=== PATIENT | male | born 1990 | race Two or more races ===

== ENCOUNTER 2017-09-02 21:35 | Emergency (ER) | payer OTHER ==
[~2017-09-02] VITALS: Ht 152.4 cm; Wt 70.3 kg
--- NOTE | 2017-09-02 22:20 | NUR ---
Pt c/o lower midline and LLQ ABD pain, intermittant, up to 9/10. Pt denies CP, SOB, dizziness, n/v, no other complaints, no distress noted.
[2017-09-02 22:37] LABS: *BILIRUBIN,URIN NEGATIVE (NEGATIVE); *BLOOD, URINE NEGATIVE (NEGATIVE); *CLARITY,URINE CLEAR (CLEAR); *COLOR,URINE YELLOW (YELLOW); *KETONES,URINE NEGATIVE (NEGATIVE); *PROTEIN,URINE NEGATIVE (NEGATIVE); *UROBILINOGEN,URINE 0.2 E.U./dl (NORMAL); LEUKOCYTE ESTERASE ,URINE NEGATIVE (NEGATIVE); NITRITE, URINE NEGATIVE (NEGATIVE); UGLUCOSE NEGATIVE (NEGATIVE)
[2017-09-02 22:59] LABS: BACTERIA,URINE NONE SEEN /HPF (NONE SEEN); RBC,URINE NONE SEEN /HPF (0-3); SQUAMOUS EPITHELIAL CELL,UR FEW /HPF (NONE SEEN); WBC,URINE NONE SEEN /HPF (0-3)
[2017-09-02] MEDS ORDERED: HYDROCODONE/APAP 10-325 MG TABLET PO ONE (23:00)
--- NOTE | 2017-09-02 23:15 | NUR ---
Gave pt RX and d/c instructions, verbalized understanding.
[2017-09-02] MEDS ORDERED: HYDROCODONE/APAP 10-325 MG TABLET ONE (23:16)
== END 2017-09-02 23:20 | disposition home or self-care (01) ==
LOC: ER 21:41
DX: R10.31 Right lower quadrant pain (principal); Z90.49 Acquired absence of other specified parts of digestive tract
CPT/HCPCS: A4663

== ENCOUNTER 2019-08-18 04:10 | Emergency (ER) | payer OTHER ==
[~2019-08-18] VITALS: Ht 165.1 cm; Wt 61.2 kg
--- NOTE | 2019-08-18 04:25 | NUR ---
Pt ambulated in ER with stable gait, A/O x 4. Pt c/o dogbite on right arm last week.
[2019-08-18] MEDS ORDERED: TDAP DIPH,PERTUSS,TET VAC/PF 0.5 ML DISP.SYRIN IM ONE ×2 (04:30)
[2019-08-18 04:40] VITALS: BP 138/74
== END 2019-08-18 04:41 | disposition home or self-care (01) ==
LOC: ER 04:12
DX: S40.021A Contusion of right upper arm, initial encounter (principal); S41.151A Open bite of right upper arm, initial encounter; F17.290 Nicotine dependence, other tobacco product, uncomplicated; W54.0XXA Bitten by dog, initial encounter; Y93.89 Activity, other specified; Y92.89 Other specified places as the place of occurrence of the external cause; Y99.8 Other external cause status
CPT/HCPCS: 90715; A4663

== ENCOUNTER 2021-12-28 10:16 | Emergency (ER) | payer OTHER ==
[~2021-12-28] VITALS: Ht 165.1 cm; Wt 70.3 kg
[2021-12-28] MEDS ORDERED: diphenhydrAMINE 25 MG CAP PO ONE ×2 (10:53→11:00)
[2021-12-28] MEDS ORDERED: COLL226C TP (11:02)
[2021-12-28] MEDS ORDERED: PERM60CR4 TP (11:02)
--- NOTE | 2021-12-28 11:04 | NUR ---
Patient discharged to home in stable condition. Written and verbal after care instructions given. Patient verbalizes understanding of instructions. Stressed follow up or return to ER for worsening s/s.
== END 2021-12-28 11:07 | disposition home or self-care (01) ==
LOC: ER 10:16
DX: R21 Rash and other nonspecific skin eruption (principal); F17.210 Nicotine dependence, cigarettes, uncomplicated
CPT/HCPCS: 99282; Q0163; A4663